=== PATIENT | female | born 1980 | race Caucasian/White ===

== ENCOUNTER 2017-12-26 14:53 | Day surgery (SDC) | payer MEDICAID ==
[2017-12-26 16:03] LABS: ADD MAN DIFF? NO
[2017-12-26 16:06] LABS: BASOPHIL # 0.1 10^3/ul (0.0-0.1); BASOPHILS % 0.5 % (0.0-2.0); EOSINOPHILS # 0.3 10^3/ul (0.0-0.5); EOSINOPHILS % 1.9 % (0.0-7.0); HEMATOCRIT 42.8 % (37.0-47.0); HEMOGLOBIN 13.7 g/dl (12.0-16.0); HOLD TRANSMISSIONS 1; LYMPHOCYTES # 2.2 10^3/ul (0.8-2.9); LYMPHOCYTES % 16.9 % (15.0-51.0); MEAN CORPUSCULAR HEMOGLOBIN 25.3 pg (29.0-33.0); MEAN CORPUSCULAR VOLUME 79.1 fl (82.0-101.0); MEAN PLATELET VOLUME 11.5 fl (7.4-10.4); MONOCYTE # 0.8 10^3/ul (0.3-0.9); MONOCYTES % 6.2 % (0.0-11.0); NEUTROPHIL # 9.5 10^3/ul (1.6-7.5); NEUTROPHILS % 73.3 % (39.0-77.0); PLATELET COUNT 234 10^3/UL (140-415); RED BLOOD COUNT 5.41 10^6/ul (4.20-5.40); RED CELL DISTRIBUTION WIDTH 13.2 % (11.5-14.5)
[2017-12-26 16:10] LABS: INR 0.93; PROTIME 12.6 Sec (11.9-14.9)
[2017-12-26 16:11] LABS: ALANINE AMINOTRANSFERASE 29 IU/L (13-69); ALBUMIN 4.4 g/dl (3.3-4.9); ALBUMIN/GLOBULIN RATIO 1.18; ALKALINE PHOSPHATASE 85 IU/L (42-121); ANION GAP 14 (8-16); ASPARTATE AMINO TRANSFERASE 26 IU/L (15-46); BILIRUBIN,INDIRECT 0.4 mg/dl (0-1.1); BILIRUBIN,TOTAL 0.4 mg/dl (0.2-1.3); BLOOD UREA NITROGEN 11 mg/dl (7-20); CALCIUM 9.2 mg/dl (8.4-10.2); CARBON DIOXIDE 27 mmol/L (21-31); CHLORIDE 104 mmol/L (97-110); CREATININE 0.48 mg/dl (0.44-1.00); GLUCOSE 124 mg/dl (70-220); POTASSIUM 3.8 mmol/L (3.5-5.1); SODIUM 141 mmol/L (135-144); TOTAL PROTEIN 8.1 g/dl (6.1-8.1)
[2017-12-26] MEDS ORDERED: KETOROLAC 30 MG INJ IV (17:00)
[2017-12-26] MEDS ORDERED: FENTAnyl 50 MCG/ML VIAL IV ×2 (17:00)
[2017-12-26] MEDS ORDERED: HYDROmorphONE 1 MG/5 ML IV SYRINGE IV ×3 (17:00)
[2017-12-26] MEDS ORDERED: IPRATROPIUM (NEB) 0.5 MG/2.5 ML AMP HHN (17:00)
[2017-12-26] MEDS ORDERED: DIPHENHYDRAMINE 50 MG INJ IV (17:00)
[2017-12-26] MEDS ORDERED: MEPERIDINE 25 MG INJ IV (17:00)
[2017-12-26] MEDS ORDERED: FENTAnyl 50 MCG/ML VIAL (17:47)
[2017-12-26] MEDS ORDERED: HYDROmorphONE 2 MG/ML SYG (17:47)
[2017-12-26] MEDS ORDERED: ROCURONIUM 50 MG INJ (17:51)
[2017-12-26] MEDS ORDERED: MIDAZOLAM 1 MG/ML 2 ML INJ (17:51)
[2017-12-26] MEDS ORDERED: SUCCINYLCHOLINE CHLORIDE 100 MG/5 ML SYG IV (17:51)
[2017-12-26] MEDS ORDERED: PROPOFOL 20 ML (17:51)
[2017-12-26] MEDS ORDERED: LIDOCAINE 2% (SDV) 5 ML INJ (17:52)
[2017-12-26] MEDS: BUPIVACAINE 0.25%/EPI (SDV) 30 ML INJ (18:08)
[2017-12-26] MEDS ORDERED: LACTATED RINGER'S 1,000 ML IV (18:40)
[2017-12-26] MEDS: KETOROLAC 60 MG INJ IM (18:54)
[2017-12-26] MEDS: BUTORPHANOL 2 MG INJ IM (18:55)
[2017-12-26] MEDS: DOXYCYCLINE 100 MG TAB PO (18:55)
[2017-12-26] MEDS ORDERED: DOXYCYCLINE 100 MG TAB PO ×2 (19:00)
[2017-12-26] MEDS: ONDANSETRON 4 MG INJ IV (20:12)
== END 2017-12-26 20:27 | disposition home or self-care (01) ==
LOC: SDS 14:53
DX: Z30.2 Encounter for sterilization (principal)
CPT/HCPCS: 58670; 80053; 82962; 85025; 85610; 85730